=== PATIENT | female | born 2000 | race American Indian/Alaskan Native ===

== ENCOUNTER 2021-07-24 00:41 | Emergency (ER) | payer MEDICAID ==
[2021-07-24 01:09] VITALS: BP 133/81
[2021-07-24 01:55] LABS: Bacteria,Urine 1+ /HPF (Negative); Bilirubin,Urine NEG (Negative); Blood,Urine LG (Negative); Color,Urine Red (Yellow); Urobilinogen,Urine < 2.0 mg/dL (<2.0)
[2021-07-24 01:57] LABS: RBC,Urine > 182.0 /HPF (0.0-6.0); WBC,Urine > 182.0 /HPF (0.0-6.0)
[2021-07-24] MEDS ORDERED: LIDOCAINE-MPF (1%) 10 MG/1 ML VIAL 5 ML INFILTRATI ONE (05:02)
[2021-07-24] MEDS ORDERED: PHENAZOPYRIDINE 200 MG TAB PO ONE (05:02)
--- NOTE | 2021-07-24 05:41 | Emergency Department Report ---
ED Female HPI - General Chief complaint: Urogenital-Female Stated complaint: BLOOD IN URINE Source: patient Mode of arrival: Ambulatory Limitations: No Limitations - History of Present Illness Initial comments: Patient is a nulliparous 21-year-old -[place] female with no past medical history presents to the ED with complaint of acute onset persistent dysuria, urinary frequency and urgency, persistent hematuria with a low back pain for the last 2 weeks worse in the last 5 days. Patient states that prior to arrival in the ED she noticed that the urinary urgency and frequency and hematuria are increased in severity. Patient denies abdominal pain, nausea and vomiting, diarrhea, fever and chills, dyspareunia or vaginal discharge. MD Complaint: dysuria, pelvic pain, other (Urinary frequency and urgency and hematuria) -: Sudden, days(s) (2), week(s) (2) Location: suprapubic, other (vaginal) Radiation: non-radiating Severity: moderate Severity scale (0 -10): 5 Quality: sharp, burning Consistency: constant Improves with: none Worsens with: urination Are you Now?: No Associated Symptoms: denies other symptoms, vaginal bleeding, abdominal pain (Suprapubic pressure), dysuria, hematuria. denies: vaginal discharge, nausea/vomiting, fever/chills, headaches, loss of appetite, rash, seizure, shortness of breath, syncope, weakness - Related Data Sexually active: Yes : 0 Para: 0 A: 0 Previous Rx's Medication Instructions Recorded Last Taken Type Ibuprofen [Motrin] 600 mg PO Q8H PRN #30 tablet 07/24/21 Unknown Rx Phenazopyridine [Pyridium] 200 mg PO BID #24 tab 07/24/21 Unknown Rx cephALEXin [Keflex] 500 mg PO Q6HR #40 capsule 07/24/21 Unknown Rx Allergies Allergy/AdvReac Type Severity Reaction Status Date / Time No Known Allergies Allergy Verified 07/24/21 01:12 ED Review of Systems ROS: Stated complaint: BLOOD IN URINE Other details as noted in HPI Constitutional: denies: chills, fever Eyes: denies: eye pain, eye discharge, vision change ENT: denies: ear pain, throat pain Respiratory: denies: cough, shortness of breath, wheezing Cardiovascular: denies: chest pain, palpitations Endocrine: no symptoms reported Gastrointestinal: abdominal pain (Suprapubic pressure). denies: nausea, diarrhea Genitourinary: urgency, dysuria, frequency, hematuria. denies: discharge Musculoskeletal: back pain, arthralgia, myalgia. denies: joint swelling Skin: denies: rash, lesions Neurological: denies: headache, weakness, paresthesias Psychiatric: denies: anxiety, depression Hematological/Lymphatic: denies: easy bleeding, easy bruising ED Past Medical Hx - Medications Home Medications: Home Medications Medication Instructions Recorded Confirmed Last Taken Type Ibuprofen [Motrin] 600 mg PO Q8H PRN #30 tablet 07/24/21 Unknown Rx Phenazopyridine [Pyridium] 200 mg PO BID #24 tab 07/24/21 Unknown Rx cephALEXin [Keflex] 500 mg PO Q6HR #40 capsule 07/24/21 Unknown Rx ED Physical Exam - General Limitations: No Limitations General appearance: alert, in no apparent distress - Head Head exam: Present: atraumatic, normocephalic, normal inspection - Eye Eye exam: Present: normal appearance, PERRL, EOMI Pupils: Present: normal accommodation - ENT ENT exam: Present: normal exam, normal orophraynx, mucous membranes moist, TM's normal bilaterally, normal external ear exam - Neck Neck exam: Present: normal inspection, full ROM. Absent: tenderness - Respiratory Respiratory exam: Present: normal lung sounds bilaterally. Absent: respiratory distress, wheezes, rales, chest wall tenderness, accessory muscle use, decreased breath sounds - Cardiovascular Cardiovascular Exam: Present: normal rhythm, tachycardia, normal heart sounds. Absent: systolic murmur, diastolic murmur, rubs, gallop - GI/Abdominal GI/Abdominal exam: Present: soft, normal bowel sounds. Absent: tenderness, guarding, rebound, hyperactive bowel sounds, hypoactive bowel sounds, organomegaly, mass - Speculum exam: Present: other (Pelvic exam deferred at this time) Bi-manual exam: Present: other (Pelvic exam deferred) - Extremities Exam Extremities exam: Present: normal inspection, full ROM, normal capillary refill. Absent: tenderness - Back Exam Back exam: Present: normal inspection, full ROM. Absent: tenderness, CVA tenderness (R), CVA tenderness (L), muscle spasm, paraspinal tenderness, vertebral tenderness - Neurological Exam Neurological exam: Present: alert, oriented X3, CN II-XII intact, normal gait, reflexes normal - Psychiatric Psychiatric exam: Present: normal affect, normal mood - Skin Skin exam: Present: warm, dry, intact, normal color. Absent: rash ED Course Vital Signs 07/24/21 07/24/21 00:56 05:11 Temperature 98.1 F 98.8 F Pulse Rate 102 H 88 Respiratory 12 Rate Blood Pressure 133/81 O2 Sat by Pulse 96 100 Oximetry ED Medical Decision Making - Medical Decision Making This is a nulliparous 21-year-old -[place] female with no past medical history presents to the ED with complaint of acute onset persistent dysuria, urinary frequency and urgency, persistent hematuria with a low back pain for the last 2 weeks worse in the last 5 days. Patient states that prior to arrival in the ED she noticed that the urinary urgency and frequency and hematuria are increased in severity. In the ED, patient is alert and oriented x3 and is not in any distress. Urinalysis showed significant urinary tract infection. Patient was treated in the ED empirically with Rocephin 1 g intramuscular injection. Patient was discharged home on pain medication and antibiotics and advised to follow-up with her primary care physician in 7 to 10 days for reevaluation or return to the ED immediately if symptoms get worse. - Differential Diagnosis UTI; cystitis; ; ovarian cyst; kidney stones Critical care attestation.: If time is entered above; I have spent that time in minutes in the direct care of this critically ill patient, excluding procedure time. ED Disposition Clinical Impression: Acute urinary tract infection, Acute cystitis with hematuria Disposition: 01 HOME / SELF CARE / HOMELESS Is pt being admited?: No Does the pt Need Aspirin: No Condition: Stable Instructions: Urinary Tract Infection, Adult, [id number] Additional Instructions: Your urinalysis test shows significant urinary tract infection. Therefore take medication as advised, drink plenty of fluids and follow-up with your primary care physician in 7 to 10 days for reevaluation. Return to the ED immediately if symptoms get worse. Prescriptions: cephALEXin [Keflex] 500 mg PO Q6HR #40 capsule Ibuprofen [Motrin] 600 mg PO Q8H PRN #30 tablet PRN Reason: Pain Phenazopyridine [Pyridium] 200 mg PO BID #24 tab Referrals: [facility] [Provider Group] - 7-10 days Forms: Work/School Release Form(ED) Time of Disposition: 05:43 Print Language: ANGUILLAN
[2021-07-24 06:29] LABS: HCG Qualitative,Urine Negative (Negative)
== END 2021-07-24 09:18 | disposition home or self-care (01) ==
LOC: ED 00:41
DX: N30.01 Acute cystitis with hematuria (principal)
CPT/HCPCS: 81001; 81025; 96372; 99283; J0696; J3490